=== PATIENT | female | born 1990 | race Caucasian/White ===

== ENCOUNTER 2017-07-18 00:34 | Inpatient (IN) | payer OTHER ==
[2017-07-18] MEDS ORDERED: Sodium Chloride 0.9% 10 ML Syringe FLUSH PRN (02:37)
[2017-07-18] MEDS ORDERED: Acetaminophen 325 MG Tab PO PRN ×2 (02:37→11:09)
[2017-07-18] MEDS ORDERED: Oxytocin/Lactated Ringers 10 UNIT/1,000 ML BAG IV SCH (02:45)
[2017-07-18] MEDS: Lactated Ringers 1,000 ML IV SCH ×2 (03:00→06:40)
[2017-07-18] MEDS ORDERED: Ampicillin 2 GM in Sodium Chloride 0.9% 100 ML IV ONE (03:00)
[2017-07-18] MEDS ORDERED: ePHEDrine 50 MG/ML SDV IVPUSH PRN (04:05)
[2017-07-18] MEDS ORDERED: Ondansetron 4 MG/2 ML SDV IVPUSH PRN (04:05)
[2017-07-18] MEDS ORDERED: fentaNYL 100 MCG/2 ML SDV EPIDUR PRN (04:05)
[2017-07-18] MEDS ORDERED: diphenhydrAMINE 50 MG/ML SDV IVPUSH PRN (04:05)
[2017-07-18] MEDS ORDERED: Bupivacaine/fentaNYL/NS 100 ML Bag EPIDUR SCH (04:15)
--- NOTE | 2017-07-18 04:55 | PCM.PREANE ---
Preanesthetic Assessment - Procedure Proposed Procedure: TAMELA - Anesthesia/Transfusion/Family Hx Anesthesia History: Prior Anesthesia Without Reaction (wisdom teeth extraction) Family History of Anesthesia Reaction: No Transfusion History: No Prior Transfusion(s) - Review of Systems General: No Symptoms Pulmonary: No Symptoms Cardiovascular: No Symptoms Gastrointestinal: Diarrhea Neurological: No Symptoms Other: Reports: None - Physical Assessment NPO Status Date: 07/18/17 NPO Status Time: 01:00 Pulse: 83 O2 Sat by Pulse Oximetry: 98 Respiratory Rate: 22 Blood Pressure: 115/76 Temperature: 36.3 C Height: 1.65 m Weight: 86.636 kg ASA Class: 2 Mental Status: Alert & Oriented x3 Airway Class: Mallampati = 2 Dentition: Reports: Normal Dentition Thyro-Mental Finger Breadths: 3 Mouth Opening Finger Breadths: 3 ROM/Head Extension: Full Lungs: Clear to Auscultation, Normal Respiratory Effort Cardiovascular: Regular Rate, Regular Rhythm - Lab Values: Laboratory Last Values WBC 11.91 K/mm3 (3.98-10.04) H 07/18/17 02:50 RBC 4.12 M/mm3 (3.98-5.22) 07/18/17 02:50 Hgb 12.2 gm/L (11.2-15.7) 07/18/17 02:50 Hct 35.4 % (34.1-44.9) 07/18/17 02:50 MCV 85.9 fl (79.4-94.8) 07/18/17 02:50 MCH 29.6 pg (25.6-32.2) 07/18/17 02:50 MCHC 34.5 g/dl (32.2-35.5) 07/18/17 02:50 RDW Std Deviation 39.6 fL (36.4-46.3) 07/18/17 02:50 Plt Count 156 K/mm3 (182-369) L 07/18/17 02:50 MPV 10.9 fl (9.4-12.3) 07/18/17 02:50 Neut % (Auto) 69.6 % (34.0-71.1) 07/18/17 02:50 Lymph % (Auto) 21.9 % (19.3-51.7) 07/18/17 02:50 [place] % (Auto) 7.3 % (4.7-12.5) 07/18/17 02:50 Eos % (Auto) 0.6 (0.7-5.8) L 07/18/17 02:50 Baso % (Auto) 0.2 % (0.1-1.2) 07/18/17 02:50 Neut # (Auto) 8.29 K/mm3 (1.56-6.13) H 07/18/17 02:50 Lymph # (Auto) 2.61 K/mm3 (1.18-3.74) 07/18/17 02:50 [place] # (Auto) 0.87 K/mm3 (0.24-0.36) H 07/18/17 02:50 Eos # (Auto) 0.07 K/mm3 (0.04-0.36) 07/18/17 02:50 Baso # (Auto) 0.02 K/mm3 (0.01-0.08) 07/18/17 02:50 Membrane Rupture Positive H 07/18/17 01:30 - Allergies Allergies/Adverse Reactions: Allergies Allergy/AdvReac Type Severity Reaction Status Date / Time No Known Allergies Allergy Verified 07/18/17 01:35 - Blood Blood Available: No Product(s) Available: None - Anesthesia Plan Pre-Op Medication Ordered: None - Acknowledgements Anesthesia Type Planned: Epidural Pt an Appropriate Candidate for the Planned Anesthesia: Yes Alternatives and Risks of Anesthesia Discussed w Pt/Guardian: Yes Pt/Guardian Understands and Agrees with Anesthesia Plan: Yes PreAnesthesia Questionnaire - CURRENT (IN HOUSE) MEDS Current Meds: Current Medications Acetaminophen (Tylenol) 650 mg PO Q6H PRN PRN Reason: Pain (Mild 1-3) and fever Diphenhydramine HCl (Benadryl) 25 mg IVPUSH Q6H PRN PRN Reason: Pruritis Ephedrine Sulfate (Ephedrine Sulfate) 5 mg IVPUSH ASDIRECTED PRN PRN Reason: Hypotension Fentanyl (Sublimaze) 100 mcg EPIDUR Q3H PRN PRN Reason: Pain Last Admin: 07/18/17 04:32 Dose: 100 mcg Fentanyl/Bupivacaine HCl (Fentanyl/Bupivacaine/Ns 2 Mcg-0.125% 100 Ml) 100 ml EPIDUR ASDIRECTED TITA Last Admin: 07/18/17 04:32 Dose: 100 ml Ampicillin Sodium 1 gm/ Sodium (Chloride) 100 mls @ 200 mls/hr IV Q4H TITA Lactated Ringer's (Ringers, Lactated) 1,000 mls @ 125 mls/hr IV ASDIRECTED TITA Last Admin: 07/18/17 03:00 Dose: 125 mls/hr Oxytocin/Lactated Ringer's (Pitocin In Lr 10 Units/1,000 Ml) 10 unit in 1,000 mls @ 500 mls/hr IV .CONTINUOUS TITA Oxytocin 20 unit/ Lactated (Ringer's) 1,002 mls @ 6.01 mls/hr IV TITRATE TITA; 2 MUNITS/MIN PRN Reason: Protocol Ondansetron HCl (Zofran) 4 mg IVPUSH ONETIME PRN PRN Reason: Nausea/Vomiting Sodium Chloride (Saline Flush) 10 ml FLUSH ASDIRECTED PRN PRN Reason: Keep Vein Open Discontinued Medications Ampicillin Sodium 2 gm/ Sodium (Chloride) 100 mls @ 200 mls/hr IV ONETIME ONE Stop: 07/18/17 03:29 Last Admin: 07/18/17 03:05 Dose: 200 mls/hr
[2017-07-18] MEDS: Ampicillin 1 GM in Sodium Chloride 0.9% 100 ML IV SCH ×2 (06:37→14:05)
[2017-07-18] MEDS ORDERED: Lanolin 100% Cream 7 GM Tube TOP PRN (11:09)
[2017-07-18] MEDS ORDERED: Witch Hazel Medicated Pads 100/Jar TOP PRN (11:09)
[2017-07-18] MEDS ORDERED: Benzocaine/Menthol 20%-0.5% Spray 56 GM Canister TOP PRN (11:09)
[2017-07-18] MEDS: Ibuprofen 600 MG Tab PO PRN ×2 (11:57→18:29)
[2017-07-18] MEDS ORDERED: FLU Vacc QS 2017-18 (6mos UP)/PF 60 MCG/0.5 ML Syringe IM ONE (18:00)
--- NOTE | 2017-07-18 21:22 | PCM.LDHP ---
L&D History of Present Illness - General Date of Service: 07/18/17 Admit Problem/Dx: Admission Diagnosis/Problem Admission Diagnosis/Problem Normal labor Source of Information: Patient History Limitations: Reports: No Limitations - History of Present Illness Introduction:: Patient is a 27 y/o at 37 6/7 wks who presented early this AM with SROM. Progressed well to complete dilation on her own. I assumed care of patient at 0700 when she became complete. She is doing well. 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 Para: 0 LMP (Approximate): - Past Surgical History HEENT Surgical History: Reports: Oral Surgery Other HEENT Surgeries/Procedures: [place] teeth extracted at age 18 Social & Family History - Family History Family Medical History: Noncontributory - Tobacco Use Smoking Status *Q: Never Smoker Second Hand Smoke Exposure: No - Caffeine Use Caffeine Use: Reports: None - Recreational Drug Use Recreational Drug Use: No H&P Review of Systems - Review of Systems: Review Of Systems: See Below General: Reports: No Symptoms Pulmonary: Reports: No Symptoms Cardiovascular: Reports: No Symptoms Gastrointestinal: Reports: No Symptoms Genitourinary: Reports: No Symptoms Musculoskeletal: Reports: No Symptoms L&D Exam - Exam Exam: See Below - Vital Signs Vital Signs: Last Vital Signs Temp 37.3 C 07/18/17 20:18 Pulse 83 07/18/17 20:18 Resp 16 07/18/17 20:18 BP 129/77 07/18/17 20:18 Pulse Ox 98 07/18/17 20:18 Weight: 86.636 kg - OB Specific Contraction Intensity: Moderate to Strong Movement: Active Heart Tones: Present Heart Tones per Min: 130 Heart Rate (FHR) Variability: Moderate (6-25 bmp) Presentation: Vertex - Exam General: Alert, Oriented, Cooperative Lungs: Clear to Auscultation, Normal Respiratory Effort Cardiovascular: Regular Rate, Regular Rhythm GI/Abdominal Exam: Soft, Non-Tender Genitourinary: Normal external exam Extremities: Normal Inspection Skin: Warm, Dry, Intact - Patient Data Lab Results Last 24 hrs: Laboratory Results - last 24 hr 07/18/17 07/18/17 Range/Units 01:30 02:50 WBC 11.91 H (3.98-10.04) K/mm3 RBC 4.12 (3.98-5.22) M/mm3 Hgb 12.2 (11.2-15.7) gm/L Hct 35.4 (34.1-44.9) % MCV 85.9 (79.4-94.8) fl MCH 29.6 (25.6-32.2) pg MCHC 34.5 (32.2-35.5) g/dl RDW Std Deviation 39.6 (36.4-46.3) fL Plt Count 156 L (182-369) K/mm3 MPV 10.9 (9.4-12.3) fl Neut % (Auto) 69.6 (34.0-71.1) % Lymph % (Auto) 21.9 (19.3-51.7) % [place] % (Auto) 7.3 (4.7-12.5) % Eos % (Auto) 0.6 L (0.7-5.8) Baso % (Auto) 0.2 (0.1-1.2) % Neut # (Auto) 8.29 H (1.56-6.13) K/mm3 Lymph # (Auto) 2.61 (1.18-3.74) K/mm3 [place] # (Auto) 0.87 H (0.24-0.36) K/mm3 Eos # (Auto) 0.07 (0.04-0.36) K/mm3 Baso # (Auto) 0.02 (0.01-0.08) K/mm3 Membrane Rupture Positive H Result Diagrams: 07/18/17 02:50 - Problem List (1) 37 weeks gestation of SNOMED Code(s): 88923329 ICD Code: Z3A.37 - 37 WEEKS GESTATION OF Status: Acute Current Visit: Yes (2) Normal labor SNOMED Code(s): 48786137 ICD Code: O80 - ENCOUNTER FOR FULL-TERM UNCOMPLICATED DELIVERY; Z37.9 - OUTCOME OF DELIVERY, UNSPECIFIED Status: Acute Current Visit: Yes (3) GBS (group B Streptococcus carrier), +RV culture, currently SNOMED Code(s): 76666170 ICD Code: O99.820 - STREPTOCOCCUS B CARRIER STATE COMPLICATING Status: Acute Current Visit: Yes Problem List Initiated/Reviewed/Updated: Yes Orders Last 24hrs: Active Orders 24 hr Category Date Time Status Activity as Tolerated [RC] PER UNIT ROUTINE Care 07/18/17 11:09 Active Activity as Tolerated [RC] PFP Care 07/18/17 02:37 Inactive Communication Order [RC] ASDIRECTED Care 07/18/17 02:37 Inactive Heart Tones [RC] ASDIRECTED Care 07/18/17 02:38 Inactive Notify Provider [RC] PFP Care 07/18/17 02:37 Inactive Notify Provider [RC] PRN Care 07/18/17 02:37 Inactive Peripheral IV Care [RC] . DIRECTED Care 07/18/17 02:38 Inactive Vital Signs [RC] 04,12,20 Care 07/18/17 11:09 Active Vital Signs [RC] PER UNIT ROUTINE Care 07/18/17 02:37 Inactive Regular Diet [DIET] Diet 07/18/17 Lunch Active Acetaminophen [Tylenol] Med 07/18/17 11:09 Active 650 mg PO Q4H PRN Benzocaine/Menthol [Dermoplast Pain Relief [place]] Med 07/18/17 11:09 Active See Dose Instructions TOP ASDIRECTED PRN Docusate Sodium [Colace] Med 07/18/17 11:09 Active 100 mg PO BID PRN Ibuprofen [Motrin] Med 07/18/17 11:09 Active 600 mg PO Q6H PRN Lanolin [Lansinoh HPA] Med 07/18/17 11:09 Active See Dose Instructions TOP ASDIRECTED PRN Witch Oriana [Tucks] Med 07/18/17 11:09 Active 1 pad TOP ASDIRECTED PRN Assess Lochia [WOMSER] Per Unit Routine Oth 07/18/17 11:09 Ordered Assess Uterine Involution [WOMSER] Per Unit Routine Oth 07/18/17 11:09 Ordered Breast Pump [WOMSER] Per Unit Routine Oth 07/18/17 11:09 Ordered Heat Therapy [OM.PC] PRN Oth 07/18/17 11:09 Ordered Heat Therapy [OM.PC] PRN Oth 07/19/17 11:09 Ordered Perineal Care [OM.PC] Per Unit Routine Oth 07/18/17 11:09 Ordered Peripheral IV Discontinue [OM.PC] Routine Oth 07/18/17 11:09 Ordered Sitz Bath [OM.PC] Per Unit Routine Oth 07/18/17 11:09 Ordered Resuscitation Status Routine Resus Stat 07/18/17 02:37 Ordered Medication Orders Acetaminophen (Tylenol) 650 mg PO Q4H PRN PRN Reason: mild pain or fever Benzocaine/Menthol (Dermoplast Pain Relief [place]) 0 gm TOP ASDIRECTED PRN PRN Reason: Perineal Comfort Measure Last Admin: 07/18/17 11:59 Dose: 1 spray Docusate Sodium (Colace) 100 mg PO BID PRN PRN Reason: Constipation Emollient Ointment (Lansinoh Hpa) 0 gm TOP ASDIRECTED PRN PRN Reason: Sore Nipples Ibuprofen (Motrin) 600 mg PO Q6H PRN PRN Reason: Mild pain or fever Last Admin: 07/18/17 18:29 Dose: 600 mg Admin: 07/18/17 11:57 Dose: 600 mg Witch Oriana (Tucks) 1 pad TOP ASDIRECTED PRN PRN Reason: Hemorrhoid pain Last Admin: 07/18/17 12:00 Dose: 1 pad Assessment/Plan Comment:: 27 y/o presented at 37 6/7 wks with SROM/labor * Assumed care for patient at 0700. Delivery imminent. See note * GBS positive, antibiotics given * Anticipate
--- NOTE | 2017-07-18 21:28 | PCM.DEL ---
L & D Note - General Info Date of Service: 07/18/17 - Delivery Note Labor: Spontaneous Delivery Outcome: Livebirth Delivery Method: Spontaneous Vaginal Delivery-Single Delivery Mode: Spontaneous Presentation: Right Occiput Anterior (CLAUDETTE) Nuchal Cord: Present, Reduced Anesthesia Type: Epidural Amniotic Fluid Description: Clear Episiotomy Type: None Laceration: 2nd Degree, Perineal Suture type: Vicryl Suture size: 2-0 Placenta: Intact, Spontaneous Cord: 3 Vessels Estimated Blood Loss: 250 Resuscitation Needed: Yes [place]: Bulb Syringe, Stimulated, Warmed, [place] Used Score 1 min: 8 Score 5 min: 9 Delivery Comments (Free Text/Narrative):: Patient found to be complete and began pushing. With maternal pushing effort head delivered from CLAUDETTE presentation. Nuchal cord present and reduced. Compound presentation with hand noted. With gentle downward traction the shoulders and body delivered. Baby placed on maternal abdomen. Cord clamped and cut. Cord blood obtained. Placenta allowed time to separate and expelled. Inspection of the perineum showed a 2nd degree laceration which was repaired with a 2-0 vicryl rapide - Patient Data Vitals - Most Recent: Last Vital Signs Temp 37.3 C 07/18/17 20:18 Pulse 83 07/18/17 20:18 Resp 16 07/18/17 20:18 BP 129/77 07/18/17 20:18 Pulse Ox 98 07/18/17 20:18 Weight - Most Recent: 86.636 kg Lab Results Last 24 Hours: Laboratory Results - last 24 hr 07/18/17 07/18/17 Range/Units 01:30 02:50 WBC 11.91 H (3.98-10.04) K/mm3 RBC 4.12 (3.98-5.22) M/mm3 Hgb 12.2 (11.2-15.7) gm/L Hct 35.4 (34.1-44.9) % MCV 85.9 (79.4-94.8) fl MCH 29.6 (25.6-32.2) pg MCHC 34.5 (32.2-35.5) g/dl RDW Std Deviation 39.6 (36.4-46.3) fL Plt Count 156 L (182-369) K/mm3 MPV 10.9 (9.4-12.3) fl Neut % (Auto) 69.6 (34.0-71.1) % Lymph % (Auto) 21.9 (19.3-51.7) % [place] % (Auto) 7.3 (4.7-12.5) % Eos % (Auto) 0.6 L (0.7-5.8) Baso % (Auto) 0.2 (0.1-1.2) % Neut # (Auto) 8.29 H (1.56-6.13) K/mm3 Lymph # (Auto) 2.61 (1.18-3.74) K/mm3 [place] # (Auto) 0.87 H (0.24-0.36) K/mm3 Eos # (Auto) 0.07 (0.04-0.36) K/mm3 Baso # (Auto) 0.02 (0.01-0.08) K/mm3 Membrane Rupture Positive H Med Orders - Current: Current Medications Acetaminophen (Tylenol) 650 mg PO Q4H PRN PRN Reason: mild pain or fever Benzocaine/Menthol (Dermoplast Pain Relief [place]) 0 gm TOP ASDIRECTED PRN PRN Reason: Perineal Comfort Measure Last Admin: 07/18/17 11:59 Dose: 1 spray Docusate Sodium (Colace) 100 mg PO BID PRN PRN Reason: Constipation Emollient Ointment (Lansinoh Hpa) 0 gm TOP ASDIRECTED PRN PRN Reason: Sore Nipples Ibuprofen (Motrin) 600 mg PO Q6H PRN PRN Reason: Mild pain or fever Last Admin: 07/18/17 18:29 Dose: 600 mg Witch Oriana (Tucks) 1 pad TOP ASDIRECTED PRN PRN Reason: Hemorrhoid pain Last Admin: 07/18/17 12:00 Dose: 1 pad Discontinued Medications Acetaminophen (Tylenol) 650 mg PO Q6H PRN PRN Reason: Pain (Mild 1-3) and fever Diphenhydramine HCl (Benadryl) 25 mg IVPUSH Q6H PRN PRN Reason: Pruritis Ephedrine Sulfate (Ephedrine Sulfate) 5 mg IVPUSH ASDIRECTED PRN PRN Reason: Hypotension Fentanyl (Sublimaze) 100 mcg EPIDUR Q3H PRN PRN Reason: Pain Last Admin: 07/18/17 04:32 Dose: 100 mcg Fentanyl/Bupivacaine HCl (Fentanyl/Bupivacaine/Ns 2 Mcg-0.125% 100 Ml) 100 ml EPIDUR ASDIRECTED TITA Last Admin: 07/18/17 04:32 Dose: 100 ml Ampicillin Sodium 2 gm/ Sodium (Chloride) 100 mls @ 200 mls/hr IV ONETIME ONE Stop: 07/18/17 03:29 Last Admin: 07/18/17 03:05 Dose: 200 mls/hr Ampicillin Sodium 1 gm/ Sodium (Chloride) 100 mls @ 200 mls/hr IV Q4H TITA Last Admin: 07/18/17 14:05 Dose: Not Given Lactated Ringer's (Ringers, Lactated) 1,000 mls @ 125 mls/hr IV ASDIRECTED TITA Last Admin: 07/18/17 06:40 Dose: 125 mls/hr Oxytocin/Lactated Ringer's (Pitocin In Lr 10 Units/1,000 Ml) 10 unit in 1,000 mls @ 500 mls/hr IV .CONTINUOUS TITA Last Admin: 07/18/17 08:20 Dose: 500 mls/hr Oxytocin 20 unit/ Lactated (Ringer's) 1,002 mls @ 6.01 mls/hr IV TITRATE TITA; 2 MUNITS/MIN PRN Reason: Protocol Ondansetron HCl (Zofran) 4 mg IVPUSH ONETIME PRN PRN Reason: Nausea/Vomiting Sodium Chloride (Saline Flush) 10 ml FLUSH ASDIRECTED PRN PRN Reason: Keep Vein Open - Problem List & Annotations (1) 37 weeks gestation of SNOMED Code(s): 75372048 Code(s): Z3A.37 - 37 WEEKS GESTATION OF Status: Acute Current Visit: Yes (2) Normal labor SNOMED Code(s): 26448594 Code(s): O80 - ENCOUNTER FOR FULL-TERM UNCOMPLICATED DELIVERY; Z37.9 - OUTCOME OF DELIVERY, UNSPECIFIED Status: Acute Current Visit: Yes (3) GBS (group B Streptococcus carrier), +RV culture, currently SNOMED Code(s): 70245297 Code(s): O99.820 - STREPTOCOCCUS B CARRIER STATE COMPLICATING Status: Acute Current Visit: Yes (4) Vaginal delivery SNOMED Code(s): 715217352 Code(s): O80 - ENCOUNTER FOR FULL-TERM UNCOMPLICATED DELIVERY Status: Acute Current Visit: Yes - Problem List Review Problem List Initiated/Reviewed/Updated: Yes - My Orders Last 24 Hours: My Active Orders 07/18/17 11:09 Activity as Tolerated [RC] PER UNIT ROUTINE Vital Signs [RC] 04,12,20 Acetaminophen [Tylenol] 650 mg PO Q4H PRN Benzocaine/Menthol [Dermoplast Pain Relief [place]] See Dose Instructions TOP ASDIRECTED PRN Docusate Sodium [Colace] 100 mg PO BID PRN Ibuprofen [Motrin] 600 mg PO Q6H PRN Lanolin [Lansinoh HPA] See Dose Instructions TOP ASDIRECTED PRN Witch Oriana [Tucks] 1 pad TOP ASDIRECTED PRN Assess Lochia [WOMSER] Per Unit Routine Assess Uterine Involution [WOMSER] Per Unit Routine Breast Pump [WOMSER] Per Unit Routine Heat Therapy [OM.PC] PRN Perineal Care [OM.PC] Per Unit Routine Peripheral IV Discontinue [OM.PC] Routine Sitz Bath [OM.PC] Per Unit Routine 07/18/17 Lunch Regular Diet [DIET] 07/19/17 11:09 Heat Therapy [OM.PC] PRN - Assessment Assessment:: 27 y/o G1 now P1001 PPD#0 from at 37 6/7 wks - Plan Plan:: * Routine cares * Encourage breast feeding * Discharge home in 1-2 days
[2017-07-18] MEDS ORDERED: Bupivacaine 0.25% 10 ML SDV ONE (22:22)
[2017-07-19] MEDS: Docusate Sodium 100 MG Cap PO PRN ×2 (04:05→18:26)
[2017-07-19] MEDS: Ibuprofen 600 MG Tab PO PRN ×3 (04:05→18:26)
--- NOTE | 2017-07-19 07:06 | PCM.PNPP ---
- General Info Date of Service: 07/19/17 Functional Status: Reports: Pain Controlled, Tolerating Diet, Ambulating, Urinating - Review of Systems General: Reports: No Symptoms Pulmonary: Reports: No Symptoms Cardiovascular: Reports: No Symptoms Gastrointestinal: Reports: No Symptoms Genitourinary: Reports: No Symptoms Musculoskeletal: Reports: No Symptoms - Patient Data Vital Signs - Most Recent: Last Vital Signs Temp 36.5 C 07/19/17 04:04 Pulse 62 07/19/17 04:04 Resp 16 07/18/17 20:18 BP 122/78 07/19/17 04:04 Pulse Ox 98 07/19/17 04:04 Weight - Most Recent: 86.636 kg Med Orders - Current: Current Medications Acetaminophen (Tylenol) 650 mg PO Q4H PRN PRN Reason: mild pain or fever Benzocaine/Menthol (Dermoplast Pain Relief [place]) 0 gm TOP ASDIRECTED PRN PRN Reason: Perineal Comfort Measure Last Admin: 07/18/17 11:59 Dose: 1 spray Docusate Sodium (Colace) 100 mg PO BID PRN PRN Reason: Constipation Last Admin: 07/19/17 04:05 Dose: 100 mg Emollient Ointment (Lansinoh Hpa) 0 gm TOP ASDIRECTED PRN PRN Reason: Sore Nipples Ibuprofen (Motrin) 600 mg PO Q6H PRN PRN Reason: Mild pain or fever Last Admin: 07/19/17 04:05 Dose: 600 mg Witch [place] (Tucks) 1 pad TOP ASDIRECTED PRN PRN Reason: Hemorrhoid pain Last Admin: 07/18/17 12:00 Dose: 1 pad Discontinued Medications Acetaminophen (Tylenol) 650 mg PO Q6H PRN PRN Reason: Pain (Mild 1-3) and fever Diphenhydramine HCl (Benadryl) 25 mg IVPUSH Q6H PRN PRN Reason: Pruritis Ephedrine Sulfate (Ephedrine Sulfate) 5 mg IVPUSH ASDIRECTED PRN PRN Reason: Hypotension Fentanyl (Sublimaze) 100 mcg EPIDUR Q3H PRN PRN Reason: Pain Last Admin: 07/18/17 04:32 Dose: 100 mcg Fentanyl/Bupivacaine HCl (Fentanyl/Bupivacaine/Ns 2 Mcg-0.125% 100 Ml) 100 ml EPIDUR ASDIRECTED TITA Last Admin: 07/18/17 04:32 Dose: 100 ml Ampicillin Sodium 2 gm/ Sodium (Chloride) 100 mls @ 200 mls/hr IV ONETIME ONE Stop: 07/18/17 03:29 Last Admin: 07/18/17 03:05 Dose: 200 mls/hr Ampicillin Sodium 1 gm/ Sodium (Chloride) 100 mls @ 200 mls/hr IV Q4H TITA Last Admin: 07/18/17 14:05 Dose: Not Given Lactated Ringer's (Ringers, Lactated) 1,000 mls @ 125 mls/hr IV ASDIRECTED TITA Last Admin: 07/18/17 06:40 Dose: 125 mls/hr Oxytocin/Lactated Ringer's (Pitocin In Lr 10 Units/1,000 Ml) 10 unit in 1,000 mls @ 500 mls/hr IV .CONTINUOUS TITA Last Admin: 07/18/17 08:20 Dose: 500 mls/hr Oxytocin 20 unit/ Lactated (Ringer's) 1,002 mls @ 6.01 mls/hr IV TITRATE TITA; 2 MUNITS/MIN PRN Reason: Protocol Ondansetron HCl (Zofran) 4 mg IVPUSH ONETIME PRN PRN Reason: Nausea/Vomiting Sodium Chloride (Saline Flush) 10 ml FLUSH ASDIRECTED PRN PRN Reason: Keep Vein Open - Infant Interaction Infant Disposition, : [place] in Room with Family Interaction: Holding Feeding: Breastfed Infant; Nursed Well Support Person: - Recovery Exam Fundal Tone: Firm Fundal Level: At Umbilicus Fundal Placement: Midline Lochia Amount: Small Lochia Color: Rubra/Red Perineum Description: Intact, Minimal Bruising/Swelling Episiotomy/Laceration: Approximated Bladder Status: Voiding Urinary Elimination: Voided - Exam General: Alert, Oriented, Cooperative GI/Abdominal Exam: Soft, Non-Tender Extremities: Normal Inspection Skin: Warm, Dry, Intact - Problem List & Annotations (1) 37 weeks gestation of SNOMED Code(s): 91824217 Code(s): Z3A.37 - 37 WEEKS GESTATION OF Status: Acute Current Visit: Yes (2) Normal labor SNOMED Code(s): 40178611 Code(s): O80 - ENCOUNTER FOR FULL-TERM UNCOMPLICATED DELIVERY; Z37.9 - OUTCOME OF DELIVERY, UNSPECIFIED Status: Acute Current Visit: Yes (3) GBS (group B Streptococcus carrier), +RV culture, currently SNOMED Code(s): 11921107 Code(s): O99.820 - STREPTOCOCCUS B CARRIER STATE COMPLICATING Status: Acute Current Visit: Yes (4) Vaginal delivery SNOMED Code(s): 706702333 Code(s): O80 - ENCOUNTER FOR FULL-TERM UNCOMPLICATED DELIVERY Status: Acute Current Visit: Yes - Problem List Review Problem List Initiated/Reviewed/Updated: Yes - My Orders Last 24 Hours: My Active Orders 07/18/17 11:09 Activity as Tolerated [RC] PER UNIT ROUTINE Vital Signs [RC] 04,12,20 Acetaminophen [Tylenol] 650 mg PO Q4H PRN Benzocaine/Menthol [Dermoplast Pain Relief [place]] See Dose Instructions TOP ASDIRECTED PRN Docusate Sodium [Colace] 100 mg PO BID PRN Ibuprofen [Motrin] 600 mg PO Q6H PRN Lanolin [Lansinoh HPA] See Dose Instructions TOP ASDIRECTED PRN Witch Oriana [Tucks] 1 pad TOP ASDIRECTED PRN Assess Lochia [WOMSER] Per Unit Routine Assess Uterine Involution [WOMSER] Per Unit Routine Breast Pump [WOMSER] Per Unit Routine Heat Therapy [OM.PC] PRN Perineal Care [OM.PC] Per Unit Routine Peripheral IV Discontinue [OM.PC] Routine Sitz Bath [OM.PC] Per Unit Routine 07/18/17 Lunch Regular Diet [DIET] 07/19/17 07:05 Ready for Discharge [RC] PER UNIT ROUTINE 07/19/17 11:09 Heat Therapy [OM.PC] PRN - Assessment Assessment:: 27 y/o G1 now P1001 PPD#1 from at 37 6/7 wks - Plan Plan:: * Routine cares * Encourage breast feeding * Discharge home today vs tomorrow depending upon patient preference
--- NOTE | 2017-07-19 09:43 | PCM48HPAN ---
Post Anesthesia Note - EVALUATION WITHIN 48HRS OF ANESTHETIC Vital Signs in Normal Range: Yes Patient Participated in Evaluation: Yes Respiratory Function Stable: Yes Airway Patent: Yes Cardiovascular Function Stable: Yes Hydration Status Stable: Yes Pain Control Satisfactory: Yes Nausea and Vomiting Control Satisfactory: Yes Mental Status Recovered: Yes
[2017-07-20] MEDS: Ibuprofen 600 MG Tab PO PRN (04:11)
[2017-07-20 04:17] VITALS: BP 112/64
--- NOTE | 2017-07-20 06:48 | PCM.PNPP ---
- General Info Date of Service: 07/20/17 Functional Status: Reports: Pain Controlled, Tolerating Diet, Ambulating, Urinating - Review of Systems General: Reports: No Symptoms Pulmonary: Reports: No Symptoms Cardiovascular: Reports: No Symptoms Gastrointestinal: Reports: No Symptoms Genitourinary: Reports: No Symptoms Musculoskeletal: Reports: No Symptoms - Patient Data Vital Signs - Most Recent: Last Vital Signs Temp 36.3 C 07/20/17 04:11 Pulse 69 07/20/17 04:11 Resp 14 07/20/17 04:11 BP 112/64 07/20/17 04:11 Pulse Ox 99 07/20/17 04:11 Weight - Most Recent: 86.636 kg I&O - Last 24 Hours: Intake & Output 07/19/17 07/19/17 07/20/17 14:59 22:59 06:59 Intake Total 0 120 Balance 0 120 Med Orders - Current: Current Medications Acetaminophen (Tylenol) 650 mg PO Q4H PRN PRN Reason: mild pain or fever Benzocaine/Menthol (Dermoplast Pain Relief [place]) 0 gm TOP ASDIRECTED PRN PRN Reason: Perineal Comfort Measure Last Admin: 07/18/17 11:59 Dose: 1 spray Docusate Sodium (Colace) 100 mg PO BID PRN PRN Reason: Constipation Last Admin: 07/19/17 18:26 Dose: 100 mg Emollient Ointment (Lansinoh Hpa) 0 gm TOP ASDIRECTED PRN PRN Reason: Sore Nipples Last Admin: 07/19/17 18:26 Dose: 7 gm Ibuprofen (Motrin) 600 mg PO Q6H PRN PRN Reason: Mild pain or fever Last Admin: 07/20/17 04:11 Dose: 600 mg Witch [place]ana (Tucks) 1 pad TOP ASDIRECTED PRN PRN Reason: Hemorrhoid pain Last Admin: 07/18/17 12:00 Dose: 1 pad Discontinued Medications Acetaminophen (Tylenol) 650 mg PO Q6H PRN PRN Reason: Pain (Mild 1-3) and fever Bupivacaine HCl (Sensorcaine-Mpf 0.25%) 10 ml .ROUTE .STK-MED ONE Stop: 07/18/17 22:23 Diphenhydramine HCl (Benadryl) 25 mg IVPUSH Q6H PRN PRN Reason: Pruritis Ephedrine Sulfate (Ephedrine Sulfate) 5 mg IVPUSH ASDIRECTED PRN PRN Reason: Hypotension Fentanyl (Sublimaze) 100 mcg EPIDUR Q3H PRN PRN Reason: Pain Last Admin: 07/18/17 04:32 Dose: 100 mcg Fentanyl/Bupivacaine HCl (Fentanyl/Bupivacaine/Ns 2 Mcg-0.125% 100 Ml) 100 ml EPIDUR ASDIRECTED TITA Last Admin: 07/18/17 04:32 Dose: 100 ml Ampicillin Sodium 2 gm/ Sodium (Chloride) 100 mls @ 200 mls/hr IV ONETIME ONE Stop: 07/18/17 03:29 Last Admin: 07/18/17 03:05 Dose: 200 mls/hr Ampicillin Sodium 1 gm/ Sodium (Chloride) 100 mls @ 200 mls/hr IV Q4H [facility] Last Admin: 07/18/17 14:05 Dose: Not Given Lactated Ringer's (Ringers, Lactated) 1,000 mls @ 125 mls/hr IV ASDIRECTED TITA Last Admin: 07/18/17 06:40 Dose: 125 mls/hr Oxytocin/Lactated Ringer's (Pitocin In Lr 10 Units/1,000 Ml) 10 unit in 1,000 mls @ 500 mls/hr IV .CONTINUOUS TITA Last Admin: 07/18/17 08:20 Dose: 500 mls/hr Oxytocin 20 unit/ Lactated (Ringer's) 1,002 mls @ 6.01 mls/hr IV TITRATE TITA; 2 MUNITS/MIN PRN Reason: Protocol Ondansetron HCl (Zofran) 4 mg IVPUSH ONETIME PRN PRN Reason: Nausea/Vomiting Sodium Chloride (Saline Flush) 10 ml FLUSH ASDIRECTED PRN PRN Reason: Keep Vein Open - Interaction Disposition, : [place] in Room with Family Interaction: Holding Feeding: Breastfed ; Nursed Well Support Person: - Recovery Exam Fundal Tone: Firm Fundal Level: At Umbilicus Fundal Placement: Midline Lochia Amount: Small Lochia Color: Rubra/Red Perineum Description: Other (see below) Other Perinuem Description: 2nd degree with repair Episiotomy/Laceration: Approximated Bladder Status: Voiding Urinary Elimination: Voided - Exam General: Alert, Oriented, Severe Distress GI/Abdominal Exam: Soft, Non-Tender Extremities: Normal Inspection Skin: Warm, Dry, Intact - Problem List & Annotations (1) 37 weeks gestation of SNOMED Code(s): 42027952 Code(s): Z3A.37 - 37 WEEKS GESTATION OF Status: Acute Current Visit: Yes (2) Normal labor SNOMED Code(s): 14847871 Code(s): O80 - ENCOUNTER FOR FULL-TERM UNCOMPLICATED DELIVERY; Z37.9 - OUTCOME OF DELIVERY, UNSPECIFIED Status: Acute Current Visit: Yes (3) GBS (group B Streptococcus carrier), +RV culture, currently SNOMED Code(s): 88307991 Code(s): O99.820 - STREPTOCOCCUS B CARRIER STATE COMPLICATING Status: Acute Current Visit: Yes (4) Vaginal delivery SNOMED Code(s): 931235342 Code(s): O80 - ENCOUNTER FOR FULL-TERM UNCOMPLICATED DELIVERY Status: Acute Current Visit: Yes - Problem List Review Problem List Initiated/Reviewed/Updated: Yes - My Orders Last 24 Hours: My Active Orders 07/19/17 07:05 Ready for Discharge [RC] PER UNIT ROUTINE 07/19/17 11:09 Heat Therapy [OM.PC] PRN - Assessment Assessment:: 27 y/o G1 now P1001 PPD#2 from at 37 6/7 wks - Plan Plan:: * Routine cares * Encourage breast feeding * Discharge home today
--- NOTE | 2017-07-20 06:49 | PCM.DCSUM1 ---
Discharge Summary - Discharge Data Discharge Date: 07/20/17 Discharge Disposition: Home, Self-Care 01 Condition: Good - Discharge Diagnosis/Problem(s) (1) 37 weeks gestation of SNOMED Code(s): 98421227 ICD Code: Z3A.37 - 37 WEEKS GESTATION OF Status: Acute Current Visit: Yes (2) Normal labor SNOMED Code(s): 79531736 ICD Code: O80 - ENCOUNTER FOR FULL-TERM UNCOMPLICATED DELIVERY; Z37.9 - OUTCOME OF DELIVERY, UNSPECIFIED Status: Acute Current Visit: Yes (3) GBS (group B Streptococcus carrier), +RV culture, currently SNOMED Code(s): 07736356 ICD Code: O99.820 - STREPTOCOCCUS B CARRIER STATE COMPLICATING Status: Acute Current Visit: Yes (4) Vaginal delivery SNOMED Code(s): 350062416 ICD Code: O80 - ENCOUNTER FOR FULL-TERM UNCOMPLICATED DELIVERY Status: Acute Current Visit: Yes - Patient Summary/Data Complications: None Consults: None Recommended Follow-up Testing/Procedures: Follow up in 5-6 weeks for check Hospital Course: 27 y/o at 37 6/7 wks presented in labor/srom. She progressed well to complete dilation without the need for augmentation and underwent an uncomplicated . See delivery note. she did well and was discharged home on PPD#2 - Patient Instructions Diet: Regular Diet as Tolerated Activity: As Tolerated Activity, Other: Pelvic Rest for 6 weeks Driving: May Drive Today Showering/Bathing: May Shower Showering/Bathing, Other: May Bathe Notify Provider of: Fever, Increased Pain, Swelling and Redness, Drainage, Nausea and/or Vomiting - Discharge Plan Home Medications: Home Meds Docusate Sodium [Colace] 100 mg PO BID PRN cap 07/19/17 [Rx] Ibuprofen [IJD: Ibuprofen] 600 mg PO Q6H PRN tablet 07/19/17 [Rx] Patient Handouts: Home Care Instructions for Mom, Breast Pumping Tips, Easy-to- Read, Challenges and Solutions Referrals: Abbey Dunn MD [Physician] - (Call to schedule appointment in 5-6 weeks for check ) - Discharge Summary/Plan Comment DC Time >30 min.: No - Patient Data Vitals - Most Recent: Last Vital Signs Temp 36.3 C 07/20/17 04:11 Pulse 69 07/20/17 04:11 Resp 14 07/20/17 04:11 BP 112/64 07/20/17 04:11 Pulse Ox 99 07/20/17 04:11 Weight - Most Recent: 86.636 kg I&O - Last 24 hours: Intake & Output 07/19/17 07/19/17 07/20/17 14:59 22:59 06:59 Intake Total 0 120 Balance 0 120 Med Orders - Current: Current Medications Acetaminophen (Tylenol) 650 mg PO Q4H PRN PRN Reason: mild pain or fever Benzocaine/Menthol (Dermoplast Pain Relief [place]) 0 gm TOP ASDIRECTED PRN PRN Reason: Perineal Comfort Measure Last Admin: 07/18/17 11:59 Dose: 1 spray Docusate Sodium (Colace) 100 mg PO BID PRN PRN Reason: Constipation Last Admin: 07/19/17 18:26 Dose: 100 mg Emollient Ointment (Lansinoh Hpa) 0 gm TOP ASDIRECTED PRN PRN Reason: Sore Nipples Last Admin: 07/19/17 18:26 Dose: 7 gm Ibuprofen (Motrin) 600 mg PO Q6H PRN PRN Reason: Mild pain or fever Last Admin: 07/20/17 04:11 Dose: 600 mg Witch [place]ana (Tucks) 1 pad TOP ASDIRECTED PRN PRN Reason: Hemorrhoid pain Last Admin: 07/18/17 12:00 Dose: 1 pad Discontinued Medications Acetaminophen (Tylenol) 650 mg PO Q6H PRN PRN Reason: Pain (Mild 1-3) and fever Bupivacaine HCl (Sensorcaine-Mpf 0.25%) 10 ml .ROUTE .STK-MED ONE Stop: 07/18/17 22:23 Diphenhydramine HCl (Benadryl) 25 mg IVPUSH Q6H PRN PRN Reason: Pruritis Ephedrine Sulfate (Ephedrine Sulfate) 5 mg IVPUSH ASDIRECTED PRN PRN Reason: Hypotension Fentanyl (Sublimaze) 100 mcg EPIDUR Q3H PRN PRN Reason: Pain Last Admin: 07/18/17 04:32 Dose: 100 mcg Fentanyl/Bupivacaine HCl (Fentanyl/Bupivacaine/Ns 2 Mcg-0.125% 100 Ml) 100 ml EPIDUR ASDIRECTED TITA Last Admin: 07/18/17 04:32 Dose: 100 ml Ampicillin Sodium 2 gm/ Sodium (Chloride) 100 mls @ 200 mls/hr IV ONETIME ONE Stop: 07/18/17 03:29 Last Admin: 07/18/17 03:05 Dose: 200 mls/hr Ampicillin Sodium 1 gm/ Sodium (Chloride) 100 mls @ 200 mls/hr IV Q4H [facility] Last Admin: 07/18/17 14:05 Dose: Not Given Lactated Ringer's (Ringers, Lactated) 1,000 mls @ 125 mls/hr IV ASDIRECTED [facility] Last Admin: 07/18/17 06:40 Dose: 125 mls/hr Oxytocin/Lactated Ringer's (Pitocin In Lr 10 Units/1,000 Ml) 10 unit in 1,000 mls @ 500 mls/hr IV .CONTINUOUS [facility] Last Admin: 07/18/17 08:20 Dose: 500 mls/hr Oxytocin 20 unit/ Lactated (Ringer's) 1,002 mls @ 6.01 mls/hr IV TITRATE TITA; 2 MUNITS/MIN PRN Reason: Protocol Ondansetron HCl (Zofran) 4 mg IVPUSH ONETIME PRN PRN Reason: Nausea/Vomiting Sodium Chloride (Saline Flush) 10 ml FLUSH ASDIRECTED PRN PRN Reason: Keep Vein Open *Q Meaningful Use (DIS) - VTE *Q VTE Criteria *Q: - Stroke *Q Stroke Criteria *Q: - AMI *Q AMI Criteria *Q:
== END 2017-07-20 08:45 | disposition home or self-care (01) | DRG 775 ==
LOC: JD.OBCHECK 00:34 → JD.OB 00:39 → JD.OBCHECK 02:52 → JD.OB 02:55 → OBSVTOIN 08:18 → JD.OB 08:18
PROVIDERS: ADMIT Obstetrics & Gynecology; ATTEND Obstetrics & Gynecology
PROC: 10E0XZZ Delivery of Products of Conception, External Approach (ICD-10-PCS; principal; 2017-07-18)
PROC: 0KQM0ZZ Repair Perineum Muscle, Open Approach (ICD-10-PCS; 2017-07-18)
PROC: 00HU33Z Insertion of Infusion Device into Spinal Canal, Percutaneous Approach (ICD-10-PCS; 2017-07-18)
PROC: 3E0R3BZ Introduction of Anesthetic Agent into Spinal Canal, Percutaneous Approach (ICD-10-PCS; 2017-07-18)
DX: O42.02 Full-term premature rupture of membranes, onset of labor within 24 hours of rupture (principal); O99.824 Streptococcus B carrier state complicating childbirth; O70.1 Second degree perineal laceration during delivery; O69.81X0 Labor and delivery complicated by cord around neck, without compression, not applicable or unspecified; Z3A.38 38 weeks gestation of pregnancy; Z37.0 Single live birth
CPT/HCPCS: 36415; 51702; 59409; 84112; 85025; A9270-GY; J0290; J2590; J3010; J7030; J7120